=== PATIENT | female | born 1990 | race Caucasian/White ===

== ENCOUNTER 2017-03-04 04:33 | Emergency (ER) | payer BC ==
[~2017-03-04] VITALS: Ht 170.2 cm; Wt 66.3 kg
[~2017-03-04 04:33] MED LIST: FLOMAX0.4 MG PO; HYDROCODON-ACE1 EAC7 PO
[2017-03-04] MEDS ORDERED: TRAMADOL HCL50 MG PO (05:10)
[2017-03-04] MEDS ORDERED: NAPROSYN500 MG PO (05:10)
[2017-03-04] MEDS ORDERED: SKELAXIN800 MG PO (05:10)
[2017-03-04 05:17] VITALS: BP 136/85
== END 2017-03-04 05:26 | disposition home or self-care (01) ==
LOC: EME 04:33
DX: M54.12 Radiculopathy, cervical region (principal); E28.2 Polycystic ovarian syndrome
CPT/HCPCS: 99281; 99284; J1885

== ENCOUNTER 2017-05-28 18:46 | Emergency (ER) | payer BC ==
[~2017-05-28] VITALS: Ht 170.2 cm; Wt 67.3 kg
[~2017-05-28 18:46] MED LIST changes: +NAPROSYN500 MG PO; +SKELAXIN800 MG PO; +TRAMADOL HCL50 MG PO
[2017-05-28 19:28] LABS: HEMATOCRIT 38.1 % (36.0-46.0); MCH 30.1 PG (29.0-34.0); MCHC 34.6 G/DL (30.0-36.0); MEAN PLAT.VOLUME 9.9 uM^3 (9.5-12.4); PLATELET COUNT 278 K/uL (156-360); RBC DIS.WIDTH-CV 11.9 % (11.8-14.6); RBC DIS.WIDTH-SD 37.9 % (39-53); RED BLOOD COUNT 4.38 M/uL (3.80-5.20); WHITE BLOOD COUNT 9.9 K/uL (4.1-10.2)
[2017-05-28 20:45] LABS: ADD MIUA? YES; BILIRUBIN NEGATIVE; BLOOD LARGE; COLOR YELLOW ((YELLOW)); GLUCOSE (STRIP) NEGATIVE; KETONES 5; LEUKOCYTES TRACE; NITRITE NEGATIVE; PROTEIN (STRIP) NEGATIVE; UROBILINOGEN 0.2 MG/DL (0.2-1.0)
[2017-05-28 21:05] LABS: BACTERIA NONE SEEN /HPF; CALCIUM OXALATE CRYSTALS 3+ /HPF; EPITHELIAL CELLS 2+ /HPF; HYALINE CASTS 0-5 /LPF; MUCUS 1+ /LPF; RED BLOOD CELLS 0-5 /HPF (0-5); UCUL ADDED? NO; WHITE BLOOD CELLS 0-5 /HPF (0-5)
[2017-05-28 21:47] VITALS: BP 104/64
== END 2017-05-28 21:48 | disposition home or self-care (01) ==
LOC: EME 18:46
DX: O20.0 Threatened abortion (principal); Z3A.01 Less than 8 weeks gestation of pregnancy; Z87.440 Personal history of urinary (tract) infections; Z87.442 Personal history of urinary calculi
CPT/HCPCS: 76801; 81003; 84702; 85027; 86900; 86901; 99281; 99283